=== PATIENT | female | born 1980 | race Caucasian/White ===

== ENCOUNTER 2016-09-01 09:29 | Emergency (ER) | payer MEDICAID ==
[~2016-09-01] VITALS: Ht 167.6 cm; Wt 68.5 kg
[~2016-09-01 09:29] MED LIST: PREN1TAB49
[2016-09-01 09:42] VITALS: Ht 167.6 cm; Wt 68.5 kg
[2016-09-01] MEDS ORDERED: ASPIRIN 325 MG TAB PO STA (10:24)
[2016-09-01 10:55] LABS: ADD SCAN DIFF NO
[2016-09-01 10:58] LABS: ADD UMIC YES; URINE BILIRUBIN (Dip) NEGATIVE (NEGATIVE); URINE BLOOD (Dip) TRACE (NEGATIVE); URINE COLOR LT. YELLOW (YELLOW); URINE GLUCOSE (Dip) NEGATIVE (NEGATIVE); URINE KETONES (Dip) NEGATIVE (NEGATIVE); URINE LEUKOCYTE ESTERASE (Dip) 2+ (NEGATIVE); URINE NITRITE (Dip) NEGATIVE (NEGATIVE); URINE TOTAL PROTEIN (Dip) NEGATIVE (NEGATIVE); URINE UROBILINOGEN (Dip) 0.2 E.U./dL (0.1-1.0)
[2016-09-01 11:02] LABS: BASOPHIL # 0.1 10^3/ul (0.0-0.1); BASOPHILS % 0.5 % (0.0-2.0); EOSINOPHILS # 0.6 10^3/ul (0.0-0.5); EOSINOPHILS % 5.7 % (0.0-7.0); HEMATOCRIT 40.6 % (37.0-47.0); HEMOGLOBIN 13.3 g/dl (12.0-16.0); LYMPHOCYTES # 2.7 10^3/ul (0.8-2.9); LYMPHOCYTES % 27.6 % (15.0-51.0); MEAN CORPUSCULAR HEMOGLOBIN 28.8 pg (29.0-33.0); MEAN CORPUSCULAR HGB CONC 32.8 g/dl (32.0-37.0); MEAN CORPUSCULAR VOLUME 87.9 fl (82.0-101.0); MEAN PLATELET VOLUME 10.8 fl (7.4-10.4); MONOCYTE # 0.5 10^3/ul (0.3-0.9); MONOCYTES % 4.9 % (0.0-11.0); NEUTROPHILS % 60.4 % (39.0-77.0); PLATELET COUNT 322 10^3/UL (140-415); RED BLOOD COUNT 4.62 10^6/ul (4.20-5.40); RED CELL DISTRIBUTION WIDTH 12.1 % (11.5-14.5); WHITE BLOOD COUNT 9.9 10^3/ul (4.8-10.8)
--- NOTE | 2016-09-01 11:02 | ERD ---
ER Documentation Chief Complaint Date/Time DATE: 09/01/16 TIME: 10:57 Chief Complaint INTERMITTENT CHEST PAIN (MID/RIGHT SIDE) STARTING LAST NIGHT, WEAKNESS HPI 35-year-old otherwise healthy female presents the emergency department complaining of intermittent chest pain which began at 11:30 PM last night. Patient states while lying down she experienced a "sore "sudden onset pain which lasted 30 minutes then subsided. Patient states she experienced the pain again at 2:00 AM. At that time her gave her 1 dose of aspirin And the pain subsided. Patient states she was concerned because she experienced the pain again this morning at 7 AM. At this time she denies any pain. Patient notes associated tingling in her hands. Patient states that she has recently been under a lot of stress due to the health and wellness of her mother. She denies any recent surgery, swelling or redness of her lower extremities, or cyanosis. Patient denies any headache, shortness of breath, blurred vision, headache, nausea, vomiting, diarrhea, dysuria, abdominal pain, recent illness. Patient denies any history of sudden among her immediate family members. ROS All systems reviewed and are negative except as per history of present illness. Medications Home Meds Active Scripts Lorazepam* (Ativan*) 0.5 Mg Tablet, 0.5 MG PO Q8, #10 TAB Prov:KEVAN OLSEN PA-C 09/01/16 Ranitidine Hcl* (Zantac*) 150 Mg Tablet, 150 MG PO BID Y for EPIGASTRIC PAIN, # 30 TAB Prov:KEVAN OLSEN PA-C 09/01/16 Reported Medications Vits W-Ca,Fe,Fa(<1MG) () 1 Tab Tablet 05/23/10 Allergies Allergies: Coded Allergies: No Known Allergy (Verified Allergy, Unknown, 05/23/10) Uncoded Allergies: nkda (Allergy, Unknown, 05/23/10) PMhx/Soc History of Surgery: No Anesthesia Reaction: No Hx Neurological Disorder: No Hx Respiratory Disorders: No Hx Cardiac Disorders: No Hx Psychiatric Problems: No Hx Miscellaneous Medical Probl: No Hx Alcohol Use: No Hx Substance Use: No Hx Tobacco Use: No Smoking Status: Never smoker Physical Exam Vitals Vital Signs Date Time Temp Pulse Resp B/P Pulse Ox O2 Delivery O2 Flow Rate FiO2 09/01/16 11:59 93 20 154/93 99 Room Air 09/01/16 09:42 99.1 99 16 144/76 88 Physical Exam Const: Well-developed, well-nourished, no acute distress Head: Atraumatic Eyes: Normal Conjunctiva ENT: Normal External Ears, Nose and Mouth. Neck: Full range of motion..~ No meningismus. Resp: Clear to auscultation bilaterally, no wheezes, rhonchi, rales Cardio: Regular rate and rhythm, no murmurs Abd: Soft, non tender, non distended. Normal bowel sounds Skin: No petechiae or rashes Back: No midline or flank tenderness Ext: No cyanosis, or edema Neur: Awake and alert Psych: Normal Mood and Affect Result Diagram: 09/01/16 1050 09/01/16 1050 Results 24 hrs Laboratory Tests Test 09/01/16 10:50 White Blood Count 9.910^3/ul Red Blood Count 4.6210^6/ul Hemoglobin 13.3g/dl Hematocrit 40.6% Mean Corpuscular Volume 87.9fl Mean Corpuscular Hemoglobin 28.8pg Mean Corpuscular Hemoglobin Concent 32.8g/dl Red Cell Distribution Width 12.1% Platelet Count 17536^3/UL Mean Platelet Volume 10.8fl Neutrophils % 60.4% Lymphocytes % 27.6% Monocytes % 4.9% Eosinophils % 5.7% Basophils % 0.5% Nucleated Red Blood Cells % 0.0/100WBC Neutrophils # 6.010^3/ul Lymphocytes # 2.710^3/ul Monocytes # 0.510^3/ul Eosinophils # 0.610^3/ul Basophils # 0.110^3/ul Nucleated Red Blood Cells # 0.010^3/ul Prothrombin Time 12.9Sec Prothrombin Time Ratio 1.0 INR International Normalized Ratio 0.97 Activated Partial Thromboplast Time 27.4Sec Urine Color LT. YELLOW Urine Clarity CLEAR Urine pH 7.0 Urine Specific [place] <=1.005 Urine Ketones NEGATIVE Urine Nitrite NEGATIVE Urine Bilirubin NEGATIVE Urine Urobilinogen 0.2 E.U./dL Urine Leukocyte Esterase 2+ Urine Microscopic RBC 0-2/HPF Urine Microscopic WBC 2-5/HPF Urine Epithelial Cells OCCASIONAL Urine Hemoglobin TRACE Urine Glucose NEGATIVE% Urine Total Protein NEGATIVE Sodium Level 142mmol/L Potassium Level 4.1mmol/L Chloride Level 103mmol/L Carbon Dioxide Level 28mmol/L Anion Gap 15 Blood Urea Nitrogen 12mg/dl Creatinine 0.70mg/dl Glucose Level 97mg/dl Calcium Level 9.5mg/dl Total Bilirubin 0.3mg/dl Direct Bilirubin 0.00mg/dl Indirect Bilirubin 0.3mg/dl Aspartate Amino Transf (AST/SGOT) 18IU/L Alanine Aminotransferase (ALT/SGPT) 16IU/L Alkaline Phosphatase 81IU/L Troponin I < 0.012ng/ml Total Protein 8.0g/dl Albumin 4.4g/dl Globulin 3.60g/dl Albumin/Globulin Ratio 1.22 Current Medications Medications (Trade) Dose Ordered Sig/Sadaf Route PRN Reason Start Time Stop Time Status Last Admin Dose Admin Aspirin (Aspirin) 325 mg ONCE STAT PO 09/01/16 10:24 09/01/16 10:27 DC Procedures/MDM PROCEDURE: XR Chest. CLINICAL INDICATION: Chest pain TECHNIQUE: Chest AP portable. COMPARISON: No comparison available. FINDINGS: The mediastinal structures are unremarkable. The heart is normal in size and configuration. The pulmonary vascularity is normal. The lung uriostegui are unremarkable. No consolidation is identified. The pleural spaces are unremarkable. The axial skeleton is unremarkable. IMPRESSION: No active intrathoracic disease. RPTAT: HGDB .Kermit Fitzgerald MD, Date Time Electronically viewed and signed by .Kermit Fitzgerald MD, MD on 09/01/2016 11:12 .B/ CC: KEVAN OLSEN PA-C EKG: Rate/Rhythm: Normal Sinus Rhythm QRS, ST, T-waves: No changes consistent w/ acute ischemia Impression: No evidence of ischemia or arrhythmia Chest X-ray 1V Interpreted by me: Soft Tissue: No acute abnormalities Bones: No acute abnormalities Mediastinum/Cardiac Silhouette/Lungs: No acute abnormalities Vital signs were reviewed. Patient is afebrile. Patient is not hypoxic, non- tachycardic. Patient's blood pressure was elevated (>120/80) but appears stable without evidence of hypertension emergency or urgency. The patient was counseled about the risks of hypertension and urged to pursue outpatient monitoring and therapy within a week with their primary care physician. CBC showed no evidence of systemic infection or severe anemia. CMP showed no evidence of electrolyte abnormalities, severe acidosis, alkalosis , renal failure, or liver disease. Lipase showed no evidence of acute pancreatitis. UA showed no evidence of acute infection or hematuria. Urine test was negative. Patient's heart score currently 0. Patient denies any history of hyper cholesterolemia, diabetes, hypertension, or cardiac atherosclerotic or coronary artery disease. Patient is not obese and is under 45 years of age. Patient denies any history of sudden among her brothers or sisters or immediate family. Troponins negative. EKG and chest x-ray negative. Patient denies any history of prolonged immobility, recent surgery or unilateral leg swelling. At this time I have low suspicion for acute coronary syndrome, dysrhythmia, DVT or pulmonary emboli. X-ray unremarkable for evidence of pleural effusion, pneumonia, bronchitis, or pneumothorax. Patient's symptoms likely due to her recent stress at home. Due to the nature of the pain occurring while laying down I will also treat the patient for possible acid reflux. Patient to report to primary care provider within 1-2 days for referral to health care liaison so that she may obtain an echocardiogram and possible further workup. Patient instructed to continue taking aspirin if she experiences the pain. I will provide the patient with course of antacids to treat possible acid reflux. Based on patient's history of present illness and physical examination the decision was made to discharge. The patient was re-evaluated after ED treatment and stabilizing measures, and symptoms have improved. There is no evidence of life threatening injuries or illnesses at this time. On re-examination, patient resting in no distress, stable vital signs, reports feeling better and safe for discharge with outpatient follow up with PMD in 1-2 days. Patient given return precautions. Departure Diagnosis: Primary Impression: Chest pain Chest pain type: unspecified Qualified Code: R07.9 - Chest pain, unspecified type Additional Impression: Stress at home KEVAN OLSEN PA-C Sep 01, 2016 11:02
--- NOTE | 2016-09-01 11:13 | RADRPT ---
PROCEDURE: XR Chest. CLINICAL INDICATION: Chest pain TECHNIQUE: Chest AP portable. COMPARISON: No comparison available. FINDINGS: The mediastinal structures are unremarkable. The heart is normal in size and configuration. The pu lmonary vascularity is normal. The lung uriostegui are unremarkable. No consolidation is identified. The pleural spaces are unremarkable. The axial skeleton is unremarkable. IMPRESSION: No active intrathoracic disease. RPTAT: HGDB .Kermit Fitzgerald MD, MD Date Time Electronically viewed and signed by .Kermit Fitzgerald MD, MD on 09/01/2016 11:12 .B/
[2016-09-01 11:19] LABS: URINE RBCS 0-2 /HPF (0)
[2016-09-01 11:23] LABS: ALBUMIN 4.4 g/dl (3.3-4.9); CHLORIDE 103 mmol/L (97-110); POTASSIUM 4.1 mmol/L (3.5-5.1); SODIUM 142 mmol/L (135-144)
[2016-09-01 11:26] LABS: ALANINE AMINOTRANSFERASE 16 IU/L (13-69); ALBUMIN/GLOBULIN RATIO 1.22; ALKALINE PHOSPHATASE 81 IU/L (42-121); ANION GAP 15 (8-16); ASPARTATE AMINO TRANSFERASE 18 IU/L (15-46); BILIRUBIN,INDIRECT 0.3 mg/dl (0-1.1); BILIRUBIN,TOTAL 0.3 mg/dl (0.2-1.3); BLOOD UREA NITROGEN 12 mg/dl (7-20); CALCIUM 9.5 mg/dl (8.4-10.2); CARBON DIOXIDE 28 mmol/L (21-31); GLUCOSE 97 mg/dl (70-220)
[2016-09-01 11:28] LABS: INR 0.97; PROTIME 12.9 Sec (12.2-14.2)
[2016-09-01 11:29] LABS: PARTIAL THROMBOPLASTIN TIME 27.4 Sec (25.0-35.0)
[2016-09-01 11:40] LABS: TROPONIN-I < 0.012 ng/ml (0.00-0.12)
[2016-09-01] MEDS ORDERED: RANI150T9 PO (11:52)
[2016-09-01 11:59] VITALS: BP 154/93; PULSE 93; RESP 20
[2016-09-01] MEDS ORDERED: LORA-441 PO (11:59)
== END 2016-09-01 12:01 | disposition home or self-care (01) ==
LOC: FTE 09:29
DX: R07.9 Chest pain, unspecified (principal); F43.9 Reaction to severe stress, unspecified
CPT/HCPCS: 36415; 71010; 80053; 81001; 84484; 85025; 85610; 85730; 93005; Z7502; Z7610; 81003

== ENCOUNTER 2019-01-24 18:53 | Emergency (ER) | payer MEDICAID, OTHER ==
[~2019-01-24] VITALS: Ht 165.1 cm; Wt 69.0 kg
[~2019-01-24 18:53] MED LIST changes: +ACET500C5 PO; +CEPH-443 PO; +GUAI-637 PO; +LORA-441 PO; +RANI-535 PO
[2019-01-24 19:04] VITALS: Ht 165.1 cm; Wt 69.0 kg
[2019-01-24] MEDS ORDERED: ACETAMINOPHEN 325 MG TAB PO STA (20:10)
[2019-01-24 22:37] VITALS: BP 120/67; PULSE 95; RESP 18
== END 2019-01-24 22:37 | disposition home or self-care (01) ==
LOC: FTE 18:53
DX: O23.42 Unspecified infection of urinary tract in pregnancy, second trimester (principal); R10.2 Pelvic and perineal pain; R05 Cough; Z3A.16 16 weeks gestation of pregnancy
CPT/HCPCS: 36415; 76801; 81001; 84702; 85025; 86900; 86901; Z7502; Z7610